=== PATIENT | male | born 1985 | race Caucasian/White ===

== ENCOUNTER 2018-01-14 11:05 | Day surgery (SDC) | payer MEDICAID ==
--- NOTE | 2018-01-14 12:11 | EDPHY ---
H & P Stated Complaint: thinks there is a chicken bone stuck throat since last night Time Seen by Provider: 01/14/18 12:11 - Personal History Current Tetanus/Diphtheria Vaccine: Yes Current Tetanus Diphtheria and Acellular Pertussis (TDAP): Yes Tetanus Vaccine Date: < 10 years - Medical/Surgical History Hx Asthma: No Hx Chronic Respiratory Disease: No Hx Diabetes: No Hx Cardiac Disease: No Hx Renal Disease: No Hx Cirrhosis: No Hx Alcoholism: No Hx HIV/AIDS: No Hx Splenectomy or Spleen Trauma: No Other PMH: none - Social History Smoking Status: Current every day smoker Constitutional: Initial Vital Signs Temperature (C) 36.7 C 01/14/18 11:07 Heart Rate 53 L 01/14/18 11:07 Respiratory Rate 19 01/14/18 11:07 Blood Pressure 131/79 H 01/14/18 11:07 O2 Sat (%) 99 01/14/18 11:07 O2 Delivery Mode Room Air Allergies/Adverse Reactions: No Known Allergies Allergy (Unverified 01/14/18 11:07) Home Medications: Medication Instructions Recorded NK [No Known Home Meds] 01/14/18 Medical Decision Making ED Course/Re-evaluation: CHIEF COMPLAINT: Feels like chicken bone stuck in throat HISTORY OF PRESENT ILLNESS: The patient is a 32 y/o male complaining of sensation of chicken bone stuck in his throat after eating last night. He has been able to swallow saliva and eat and drink since onset. Denies associated symptoms. No difficulty breathing. He has never had difficulty swallowing in the past. He is normally healthy. No recent illness or trauma. REVIEW OF SYSTEMS: A 10 point review of systems was performed and is negative with the exception of the elements mentioned in the history of present illness. PHYSICAL EXAM: HR, BP, O2 Sat, RR. Temp noted General Appearance: Alert, well hydrated, appropriate, and non-toxic appearing. Head: Atraumatic without scalp tenderness or obvious injury Eyes: Pupils equal, round, reactive to light and accommodation, EOMI, no trauma , no injection. Nose: Atraumatic, no rhinorrhea, clear. Throat: There is no erythema or exudates, no lesions, normal tonsils, mucus membranes moist. Neck: Supple, nontender, no lymphadenopathy. Respiratory: No retractions, no distress, no wheezes, and no accessory muscle use. Lungs are clear to auscultation bilaterally. Cardiovascular: Regular rate and rhythm, no murmurs, rubs, or gallops. Good capillary refill all extremities. Gastrointestinal: Abdomen is soft, nontender, non-distended, no masses, no rebound, no guarding, no peritoneal signs. Musculoskeletal: Normal active ROM of all extremities, atraumatic. Neurological: Alert, appropriate, and interactive. The patient has non-focal cranial nerves, motor, sensory, and cerebellar exam. Skin: No rashes, good turgor, no nodules on palpation. Past medical history: Denies Past surgical history: Denies Family history: Noncontributory Social history: Smoker. Lives in [place]. Not employed. DIFFERENTIAL DIAGNOSIS: The differential diagnosis for the patient's symptoms included but was not limited to esophageal foreign body, esophageal abrasion, esophageal stricture, myocardial ischemia, infectious causes. MEDICAL DECISION MAKING: This is a 32 y/o male with no reported medical history who presents with the sensation of a chicken bone stuck in his throat since last night, but no difficulty eating or swallowing. Exam is unremarkable, no drooling or mass. Patient will require an endoscopy, plan for GI consult. 1250: Spoke with Dr. Cano, GI. He will take patient to endoscopy. Departure - Departure Referrals: Lorenzo Laurent MD [Primary Care Provider] - As per Instructions Report Scribed for: Andrea Beach Report Scribed by: Shanita Rainey Date of Report: 01/14/18 Time of Report: 12:35
[2018-01-14] MEDS ORDERED: LR 1,000 ML IV ONE (13:31)
--- NOTE | 2018-01-14 14:09 | PDANEPAE ---
ANE History of Present Illness 32 yo male with food stuck in distal esophagus. ANE Past Medical History - Cardiovascular History Hx Hypertension: No Hx Arrhythmias: No Hx Chest Pain: No Hx Coronary Artery / Peripheral Vascular Disease: No Hx CHF / Valvular Disease: No Hx Palpitations: No - Pulmonary History Hx COPD: No Hx Asthma/Reactive Airway Disease: No Hx Recent Upper Respiratory Infection: No Hx Oxygen in Use at Home: No Hx Sleep Apnea: No - Neurologic History Hx Cerebrovascular Accident: No Hx Seizures: Yes Hx Dementia: No Neurologic History Comment: Brain tumor - L frontal lobe. 1 seizure at age 27 - Endocrine History Hx Diabetes: No Hypothyroid: No Hyperthyroid: No - Renal History Hx Renal Disorders: No - Liver History Hx Hepatic Disorders: No - Neurological & Psychiatric Hx Hx Neurological and Psychiatric Disorders: No - Cancer History Hx Cancer: No - Congenital Disorder History Hx Congenital Disorders: No - GI History Hx Gastrointestinal Disorders: No - Chronic Pain History Chronic Pain: No - Surgical History Prior Surgeries: NA ANE Review of Systems Review of Systems: - Exercise capacity METS (RN): 4 METS - Systems Constitutional: Reports: fever (with URI) EENMT: Reports: nose congestion (with URI 2 weeks ago) Respiratory: Reports: cough (URI few weeks ago, s/p course of Abx finished on Saturday) ANE Patient History - Allergies Allergies/Adverse Reactions: No Known Allergies Allergy (Unverified 01/14/18 11:07) - Home Medications Home medications: home medication list seen and reviewed Home Medications: NK [No Known Home Meds] 01/14/18 [Last Taken Unknown] - NPO status NPO Since - Liquids (Date): 01/14/18 NPO Since - Liquids (Time): 11:52 NPO Since - Solids (Date): 01/14/18 NPO Since - Solids (Time): 07:30 - Anes Hx Hx Anesthesia Complications (with details): no history of GA - Smoking Hx Smoking Status: Current every day smoker Marijuana use: Yes - Alcohol Use Alcohol Use: None - Family Anes Hx Family Anes Hx: neg - N/A Family Hx Anesthesia Complications: NA ANE Labs/Vital Signs - Vital Signs Blood Pressure: 132/90 Heart Rate: 55 Respiratory Rate: 16 O2 Sat (%): 97 Height: 182.88 cm Weight: 68.039 kg ANE Physical Exam - Airway Neck exam: FROM Mallampati Score: Class 1 Mouth exam: normal dental/mouth exam - Pulmonary Pulmonary: other (coarse, but no wheezing) - Cardiovascular Cardiovascular: regular rate and rhythym - ASA Status ASA Status: II ANE Anesthesia Plan Anesthesia Plan: general endotracheal anesthesia
--- NOTE | 2018-01-14 15:21 | GCON ---
[f rep st] CONSULTATION CHIEF COMPLAINT: Foreign body sensation. HISTORY OF PRESENT ILLNESS: I have been asked to see this 32-year-old gentleman, in consultation for foreign body sensation in his throat from Dr. Beach. This patient has no other significant medica l history. He was eating a chicken leg last night and felt as though the food was stuck. He actuall y had to cough it out. He felt as though a small bone was caught in his throat. He tried drinking w ater and eating to help wash it down. Foreign body sensation continued this morning. He has had mirella e discomfort in his neck and his throat. Denies any difficulty with dysphagia and no difficulty with secretions. He has no other significant GI history. I was asked to see patient from Dr. Beach to evaluate esophagus, for retained foreign body. PAST MEDICAL HISTORY: Negative. PAST SURGICAL HISTORY: Negative. MEDICATIONS: None prior to admission. ALLERGIES: He has no known drug allergies. FAMILY HISTORY: Noncontributory as it pertains to chief complaint. SOCIAL HISTORY: Negative. REVIEW OF SYSTEMS: Negative for 10 systems other than mentioned in the HPI. PHYSICAL EXAM: VITAL SIGNS: 132/90, heart rate 55, respiratory rate 16, 97% saturation, 36.8. GENE RAL: Very pleasant gentleman, no acute distress. HEENT: Normocephalic, atraumatic. NECK: No crep itus. No thyromegaly. LUNGS: Clear. CARDIAC: Normal S1, S2, without murmur. ABDOMEN: Benign wi thout hepatosplenomegaly. Nontender. EXTREMITIES: Without clubbing, cyanosis, edema. NEUROLOGIC: Nonfocal. SKIN: Warm and dry. PSYCHIATRIC: Alert, oriented x3, with normal affect. LABORATORY DATA: No laboratory data. IMPRESSION: A 32-year-old male, with possible retained bone or foreign body in the hypopharynx or th e proximal esophagus. Proceed with upper endoscopy with Anesthesia assistance. If unremarkable, siomara mahan recommend ENT referral. /[id number]/MODL
[2018-01-14] MEDS ORDERED: PROPOFOL/EMULSION 500 MG/50 ML BOTTLE IV ONE (15:39)
[2018-01-14] MEDS ORDERED: PROPOFOL 200 MG/20 ML VIAL ONE (15:44)
--- NOTE | 2018-01-14 15:53 | GIREPORT ---
[facility] Surgical Services - Endoscopy Department Patient Name: Giovanni Hemphill Procedure Date: 01/14/2018 1:59 PM Patient Type: Inpatient Attending MD/ ER Physician: Roel Cano MD Procedure: Upper GI endoscopy Indications: Foreign body in the esophagus. Ate chicken leg last night. Swallowed a bone and food bolus was stuck and her threw it up. He has a persistent FB sensation in his neck and throat. Providers: Roel Cano MD Medicines: Sedation Required Anesthesia Staff Assistance Complications: No immediate complications. Description of Procedure: After obtaining informed consent, the endoscope was passed under direct vision. Throughout the procedure, the patient's blood pressure, pulse, and oxygen saturations were monitored continuously. The Endoscope was intro duced through the mouth, and advanced to the second part of duodenum. The [facility] er GI endoscopy was accomplished without difficulty. The patient tolerated th e procedure well. Findings: The examined esophagus was normal. The entire examined stomach was normal. The examined duodenum was normal. Estimated Blood Loss: Estimated blood loss: none. Post Op Diagnosis: - Normal esophagus. - Normal stomach. - Normal examined duodenum. - No specimens collected. - No evidence of foreign body in the proximal or distal esophagus. Recommendation: - Resume regular diet. - Would recommend ENT referral for persistent symptoms of pain and FB sensation in the throat. - Thank you for allowing me to participate in the care of your patient. Attending Participation: I personally performed the entire procedure. Roel Cano MD Roel Cano MD 01/14/2018 3:52:36 PM This report has been signed electronicallyStluis Cano MD Number of Addenda: 0 Note Initiated On: 01/14/2018 1:59 PM [email or web address]
--- NOTE | 2018-01-14 16:03 | POSTANESTH ---
Post Anesthetic Evaluation Cardiovascular Status: Normal, Stable Respiratory Status: Normal, Stable Level of Consciousness/Mental Status: Can Participate in Eval Pain Control: Adequate, Prn Tx Ordered Nausea/Vomiting Control: Adequate, Prn Tx Ordered Complications Possibly Related to Anesthesia: None Noted
[2018-01-14 16:25] VITALS: BP 112/84; PULSE 51; RESP 14; TEMP 98.1; O2SAT 98
== END 2018-01-14 16:37 | disposition home or self-care (01) ==
LOC: FSGY 13:25
PROVIDERS: ATTEND Internal Medicine Gastroenterology
PROC: 0DJ08ZZ Inspection of Upper Intestinal Tract, Via Natural or Artificial Opening Endoscopic (ICD-10-PCS; principal; 2018-01-14 14:00)
DX: Z03.89 Encounter for observation for other suspected diseases and conditions ruled out (principal); R09.89 Other specified symptoms and signs involving the circulatory and respiratory systems
CPT/HCPCS: J2704

== ENCOUNTER → 2018-05-15 | Outpatient (CLI) | payer MEDICAID, OTHER ==
[~2018-05-15] MED LIST: GADOBUTROL 10 ML VIAL IVP ONE
== END ==
LOC: FIMAGING 18:59
PROVIDERS: ATTEND Internal Medicine
DX: R51 Headache (principal)
CPT/HCPCS: A9585